=== PATIENT | female | born 1990 | race African-American/Black ===

== ENCOUNTER 2017-10-07 10:50 | Emergency (ER) | payer MEDICAID, OTHER ==
[~2017-10-07] VITALS: Ht 160 cm; Wt 52.0 kg
[2017-10-07] MEDS ORDERED: IBUPROFEN 600MG TABLET PO ONE (14:45)
[2017-10-07 16:30] VITALS: BP 120/70
== END 2017-10-07 16:33 | disposition home or self-care (01) ==
LOC: ER 11:10
DX: S60.212A Contusion of left wrist, initial encounter (principal); S60.222A Contusion of left hand, initial encounter; S40.022A Contusion of left upper arm, initial encounter; W18.39XA Other fall on same level, initial encounter; Y93.89 Activity, other specified; Y92.89 Other specified places as the place of occurrence of the external cause; Y99.8 Other external cause status; Z98.890 Other specified postprocedural states
CPT/HCPCS: 29105; 73090; 73110; 73130; 81025; 99284